=== PATIENT | male | born 1960 | race Caucasian/White ===

== ENCOUNTER 2018-08-14 11:00 | Inpatient (IN) | payer OTHER ==
--- NOTE | 2018-08-05 13:06 | HP ---
HISTORY AND PHYSICAL: DATE OF ADMISSION/SURGERY: 08/14/18 DATE OF OFFICE VISIT: 08/04/18 SURGEON: Kya Flynn MD * (DICTATED BY JOELLE ARENAS) PROCEDURE: Left total hip arthroplasty. CHIEF COMPLAINT: Left hip pain. HISTORY OF PRESENT ILLNESS: Mr. Ornelas is a 57-year-old gentleman with continued complaints of left hip pain. He has failed conservative treatment and elected to proceed with a left total hip arthroplasty. PAST MEDICAL HISTORY: Sleep apnea and hypertension. PAST SURGICAL HISTORY: Denies. CURRENT MEDICATIONS: 1. Meloxicam 7.5 mg twice a day. 2. Amlodipine 5 mg daily. ALLERGIES: No known drug allergies. FAMILY HISTORY: Coronary artery disease, Alzheimer's, and stroke. SOCIAL HISTORY: This is a 57-year-old gentleman who lives with his spouse. He does not smoke or use drugs. Uses occasional alcohol. REVIEW OF SYSTEMS: A complete 14-point review of systems was reviewed with the patient. It was all negative or noncontributory. He denies history of DVT, PE , hepatitis, HIV, or anesthesia problems. PHYSICAL EXAMINATION GENERAL: He is well developed, well nourished, in no acute distress. VITAL SIGNS: He stands 66 inches tall, weighs 198 pounds. Blood pressure is 137/72 and his heart rate is 68. HEENT: Normocephalic and atraumatic. NECK: Supple. No palpable lymph nodes. PULMONARY: The lungs are clear to auscultation bilaterally. CARDIO: Regular rate and rhythm. Strong S1 and S2. ABDOMEN: Soft, nontender, and nondistended. NEUROLOGICAL: He is alert and oriented x3. MUSCULOSKELETAL: Left lower extremity, the skin is intact. There are no open wounds or abrasions. He walks with an antalgic type gait favoring the left hip. He has decreased internal and external rotation of the left hip. He has a 2+ dorsalis pedis pulse, intact sensation and his lower extremity muscle group strengths are intact at 5/5. ASSESSMENT AND PLAN: Mr. Ornelas is a 57-year-old gentleman with end-stage osteoarthritis of the left hip. He has failed conservative treatment and elected to proceed with a left total hip arthroplasty. This surgery is scheduled for 08/14/[address] Flynn discussed the risks and benefits of the surgery at today's visit and all of his questions were answered. He will follow up with Dr. Flynn 2 weeks after the surgery. JOELLE ARENAS [id number]/[facility] #: [id number]
[~2018-08-14 11:00] MED LIST: Acetaminophen IV 1GM/100ML * 1,000 MG/100 ML VIAL IVPB ONE; Buffered Lidocaine 1% SYRIN* 1 ML/SYRINGE INTRADERM ONE; Bupivacaine 0.5%* 50 ML VIAL ONE; Dexamethasone IV* 4 MG/ML 1 ML (4 MG) IV SLOW PU ONE; Famotidine IV* 10 MG/ML 2 ML (20 mg) IV ONE; Gabapentin CAP(*) 300 MG PO ONE; Lactated Ringers 1000 ML Bag* 1,000 ML IV SCH; celeCOXIB CAP* 200 MG PO ONE
[2018-08-14] MEDS ORDERED: Midazolam* 1 MG/ML 5 ML VIAL (5 MG) ONE (11:45)
[2018-08-14] MEDS ORDERED: fentaNYL* 50 MCG/ML 2 ML VIAL (100 MCG VIAL) ONE (11:45)
[2018-08-14] MEDS ORDERED: KETAMINE HCL* 50 MG/ML 10 ML VIAL ONE (11:45)
[2018-08-14] MEDS ORDERED: Ondansetron INJ* 2 MG/ML VIAL ONE (11:48)
[2018-08-14] MEDS ORDERED: Propofol* 10 MG/ML 20 ML BTL ONE ×2 (11:48→15:21)
--- OUTSIDE RECORDS SUMMARY | 2018-08-14 12:20 | XMS REPORT | Continuity of Care Document ---
:1960 External Reference #:[id number] Author Name Dori López Care Team Providers Name Role Phone Walter Rice DO Primary Care Physician Unavailable Payers Type Date Identification Numbers Payment Provider Subscriber Policy Number: [id number] [employer] Cecilio Ornelas Group Number: [id number] [address] PayID: [id number] [place] [address] Advance Directives Description No Information Available Problems Date Description Provider Status Onset: 10/01/2017 Obstructive sleep apnea syndrome Honey Wright DNP, RN, Active RUBBER PROCESS HAND-BC Onset: 06/16/2018 Localized, primary osteoarthritis Kya Flynn M.D. Active of the pelvic region and thigh Family History Date Family Member(s) Problem(s) Comments General Heart Disease General Hypertension General Stroke General Rheumatoid Arthritis Father Angina Father due to Natural Causes () - dementia Father Pancreatitis Father Glaucoma Mother Hypertension Mother due to Alzheimer's Disease () Mother Alzheimer's Disease Siblings 3 2 brother and 1 sister Social History Type Date Description Comments Sex Unknown Marital Status Lives With Lives With Children x2 Occupation It Tobacco Use Start: Unknown Never Smoked Cigarettes Smoking Status Reviewed: 08/04/18 Never Smoked Cigarettes ETOH Use Currently consumes alcohol few per day Tobacco Use Start: Unknown Patient has never smoked Recreational Drug Use Denies Drug Use Exercise Type/Frequency Exercises sporadically Allergies, Adverse Reactions, Alerts Description No Known Drug Allergies Medications Medication Date Status Form Strength Qnty SIG Indications Ordering Provider Ibuprofen Active Tablets 200mg as needed Unknown Super Active Tablets Unknown B-Complex/Kami 00 min C Meloxicam Active Tablets 7.5mg take one Unknown 00 tab twice daily as needed for pain, avoid other nsaids Amlodipine Active Tablets 5mg 1 by mouth Unknown Besylate 00 every day Immunizations Description No Information Available Vital Signs Date Vital Result Comment 08/04/2018 11:38am Height 66 inches 5'6" Weight 197.00 lb BP Systolic 137 mmHg BP Diastolic 72 mmHg Respiratory Rate 17 /min Pain Level 2 BMI (Body Mass Index) 31.8 kg/m2 06/16/2018 9:38am Height 66 inches 5'6" Weight 198.00 lb Heart Rate 68 /min BP Systolic 126 mmHg BP Diastolic 86 mmHg BMI (Body Mass Index) 32.0 kg/m2 10/01/2017 8:44am Height 66 inches 5'6" Weight 200.12 lb Heart Rate 72 /min BP Systolic Sitting 130 mmHg Rue large cuff BP Diastolic Sitting 84 mmHg Rue large cuff Respiratory Rate 14 /min O2 % BldC Oximetry 98 % BMI (Body Mass Index) 32.3 kg/m2 10/01/2017 8:41am Height 66 inches 5'6" 09/11/2017 8:22am Height 66 inches 5'6" Weight 202.00 lb Heart Rate 64 /min BP Systolic Sitting 126 mmHg BP Diastolic Sitting 80 mmHg Respiratory Rate 14 /min O2 % BldC Oximetry 98 % BMI (Body Mass Index) 32.6 kg/m2 Neck Circumference in inches 17.5 Results Description No Information Available Procedures Date Code Description Status 09/11/2017 20068 Sleep Study Unattended,HRT Rate,Oxygen Sat,Resp Completed Effort/Airflow Encounters Type Date Location Provider Dx Diagnosis Office Visit 06/16/2018 Orthopedic Kya Flynn, M25.552 Pain in left hip 9:00a [facility] Jamison M16.12 Unilateral primary osteoarthritis, left hip Office Visit 10/01/2017 Pulmonology And Honey G47.33 Obstructive sleep 8:45a Sleep [facility] LILY Wright, RN, apnea (adult) Pallavi RUBBER PROCESS HAND-BC (pediatric) Office Visit 09/11/2017 Pulmonology And Hattie Acosta, R06.83 Snoring 8:30a Sleep Services Of MD Olivo R40.0 Somnolence Plan of Treatment Future Appointment(s):08/27/2018 8:45 am - Kya Flynn M.D. at [facility].08/14/2018 11:30 am - IVAN Beaulieu at [facility].08/14/2018 11:30 am - JOELLE Robison at [facility].08/14/2018 11:30 am - Kya Flynn M.D. at [facility].08/04/2018 - Kya Flynn M.D.M25.552 Pain in left hipFollow up:Follow up: 2 weeks after [id number] Unilateral primary osteoarthritis, left hip
--- OUTSIDE RECORDS SUMMARY | 2018-08-14 12:20 | XMS REPORT | Continuity of Care Document ---
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-BC Onset: 06/16/2018 Localized, primary osteoarthritis Kya Flynn [...] Ibuprofen Active Tablets 200mg as needed Unknown 00 Super Active Tablets Unknown B-Complex/Kami 00 min [...] kg/m2 Neck Circumference in inches 17.5 Results Test Date Facility Test Result H/L Range Note CBC Auto Diff 08/04/2018 [facility] White Blood 6.9 10^3/uL N 3.5-10.[address] [place] [address] [phone] Red Blood Count 5.55 10^6/uL High 4.00-5.40 Hemoglobin 14.8 g/dL N 14.0-18.0 Hematocrit 46 % N 42-52 Mean Corpuscular Volume 83 fL N 80-94 Mean Corpuscular Hemoglobin 27 pg N 27-31 Mean Corpuscular HGB Conc 32 g/dL N 31-36 Red Cell Distribution Width 15 % N 10.5-15 Platelet Count 333 10^3/uL N 150-450 Mean Platelet Volume 8.0 fL N 7.4-10.4 Abs Neutrophils 3.9 10^3/uL N 1.5-7.7 Abs Lymphocytes 2.1 10^3/uL N 1.0-4.8 Abs Monocytes 0.6 10^3/uL N 0-0.8 Abs Eosinophils 0.2 10^3/uL N 0-0.6 Abs Basophils 0.1 10^3/uL N 0-0.2 Abs Nucleated RBC 0 10^3/uL Granulocyte % 56.8 % Lymphocyte % 30.4 % Monocyte % 8.5 % Eosinophil % 3.1 % Basophil % 1.2 % Nucleated Red Blood Cells % 0.1 Urinalysis Profile 08/04/2018 [facility] Urine Color Yellow [address] [place] [address] [phone] Urine Appearance Clear Urine Specific [place] 1.020 N 1.010-1.030 Urine pH 5.0 N 5-9 Urine Urobilinogen Negative Negative Urine Ketones Negative Negative Urine Protein Negative Negative Urine Leukocytes Negative Negative Urine Blood Negative Negative Urine Nitrite Negative Negative Urine Bilirubin Negative Negative Urine Glucose Negative Negative Comp Metabolic Panel 08/04/2018 [facility] Sodium 136 mmol/L N 135-145 [address] [place] [address] [phone] Potassium 4.4 mmol/L N 3.5-5.0 Chloride 103 mmol/L N 101-111 Co2 Carbon Dioxide 27 mmol/L N 22-32 Anion Gap 6 mmol/L N 2-11 Glucose 93 mg/dL N 70-100 Blood Urea Nitrogen 20 mg/dL N 6-24 Creatinine 0.85 mg/dL N 0.67-1.17 BUN/Creatinine Ratio 23.5 High 8-20 Calcium 9.5 mg/dL N 8.6-10.3 Total Protein 7.4 g/dL N 6.4-8.9 Albumin 4.5 g/dL N 3.2-5.2 Globulin 2.9 g/dL N 2-4 Albumin/Globulin Ratio 1.6 N 1-3 Total Bilirubin 0.40 mg/dL N 0.2-1.0 Alkaline Phosphatase 61 U/L N 34-104 Alt 27 U/L N 7-52 Ast 22 U/L N 13-39 Egfr Non- 93.6 >60 Egfr 113.2 >60 1 Inr/Protime 08/04/2018 [facility] Inr 0.86 N 0.77-1.[address] [place] [address] [phone] Laboratory test 08/04/2018 [facility] Partial 30.5 seconds N 26.0-36.[address] [place] [address] PTT [phone] Type & Screen 08/04/2018 [facility] Patient O Positive [address] [place] [address] [phone] Antibody Screen NEGATIVE Urine Culture And 08/04/2018 [facility] Urine Culture SEE RESULT [address] [place], [place] [id number] [phone] 1 Because ethnic data is not always readily available, this report includes an eGFR for both -Americans and non- Americans. The National Kidney Disease Education Program (NKDEP) does not endorse the use of the MDRD equation for patients that are not between the ages of 18 and 70, are , have extremes of body size, muscle mass, or nutritional status, or are non- or non-. According to the National Kidney Foundation, irrespective of diagnosis, the stage of the disease is based on the level of kidney function: Stage Description GFR(mL/min/1.73 m(2)) 1 Kidney damage with normal or decreased GFR 90 2 Kidney damage with mild decrease in GFR 60-89 3 Moderate decrease in GFR 30-59 4 Severe decrease in GFR 15-29 5 Kidney failure <15 (or dialysis) 2 SEE RESULT BELOW Name: CECILIO ORNELAS : [address]: Kya Flynn MD Acct: [id number] Unit: [id number] AGE: 57 Location: [facility] Re08/04/18 SEX: M Status: REG REF SPEC: [id number] JULIO: 08/04/18 [facility] DR: Kya Flynn MD REQ: [id number] RECD: 08/04/18 STATUS: COMP JOAN DR: Walter Rice DO _ SOURCE: URINE SPDESC: ORDERED: Urine Culture QUERIES: Urine Source: Clean Catch Procedure Result Reported Site Urine Culture Final 08/05/18- 1201 ML No Growth (<1,000 CFU/mL) * ML - Main Lab . END OF REPORT DEPARTMENT OF PATHOLOGY, [address] [address] Tevin Reyes M.D. Director [facility] # [id number] Procedures Date Code Description Status 09/11/2017 87885 Sleep Study Unattended,HRT Rate,Oxygen Sat,Resp Completed Effort/Airflow Encounters Type Date Location Provider Dx Diagnosis Office Visit 06/16/2018 Orthopedic Kya Flynn, M25.552 Pain in left hip 9:00a Services Of Angela Jamison M16.12 Unilateral primary osteoarthritis, left hip Office Visit 10/01/2017 Pulmonology And Honey G47.33 Obstructive sleep 8:45a Sleep [facility] LILY Wright, RN, apnea (adult) Pallavi ROLLER STITCHER-BC (pediatric) Office Visit 09/11/2017 Pulmonology And Hattie Acosta, R06.83 Snoring 8:30a Sleep [facility] MD Olivo R40.0 Somnolence Plan of Treatment Future Appointment(s):08/27/2018 8:45 am - Kya Flynn M.D. at [facility]08/14/2018 3:30 pm - IVAN Beaulieu at [facility]08/14/2018 3:30 pm - JOELLE Robison at [facility]08/14/2018 3:30 pm - Kya Flynn M.D. at [facility]08/04/2018 - Kya Flynn M.D.M25.552 Pain in left hipFollow up:Follow up: 2 weeks after gcauhahI80.12 Unilateral primary osteoarthritis, left hip
[2018-08-14] MEDS ORDERED: Bupivacaine 0.5% SDV PF* 30ML VIAL ONE (12:23)
[2018-08-14] MEDS ORDERED: Buffered Lidocaine 1% SYRIN* 1 ML/SYRINGE INTRADERM ONE (12:37)
[2018-08-14] MEDS ORDERED: Acetaminophen IV 1GM/100ML * 100 ML ONE (13:33)
[2018-08-14] MEDS ORDERED: Glycopyrrolate IV* 0.2 MG/ML 1 ML VIAL ONE (14:16)
[2018-08-14] MEDS ORDERED: DiMENhydriNATE IV* 50 MG/ML VIAL IV PUSH PRN (14:27)
[2018-08-14] MEDS ORDERED: Naloxone* 0.4 MG/ML 1 ML VIAL IV PRN (14:27)
[2018-08-14] MEDS ORDERED: Ondansetron INJ* 2 MG/ML VIAL IV PRN ×2 (14:27→15:05)
[2018-08-14] MEDS ORDERED: HYDROmorphone INJ1* 1 MG/ML SYRINGE IV PRN (14:27)
[2018-08-14] MEDS ORDERED: fentaNYL* 50 MCG/ML 2 ML VIAL (100 MCG VIAL) IV PRN (14:27)
[2018-08-14] MEDS ORDERED: Atropine 1MG/ML INJ* 1 ML VIAL ONE (14:44)
[2018-08-14] MEDS ORDERED: Midazolam* 1 MG/ML 2 ML VIAL (2 MG) ONE (14:59)
[2018-08-14] MEDS ORDERED: diPHENhydraMINE IV* 50 MG/ML 1 ml VIAL (BENADRYL) IV PRN (15:05)
[2018-08-14] MEDS ORDERED: Bisacodyl SUPP* 10 MG SUPP PR PRN (15:05)
[2018-08-14] MEDS ORDERED: oxyCODONE/Acetamin 5/325 MG* TAB PO PRN (15:05)
[2018-08-14] MEDS ORDERED: Cyclobenzaprine TAB* 10 MG PO PRN (15:05)
[2018-08-14] MEDS ORDERED: Magnesium Hydroxide LIQ* 30 ML UDC PO PRN (15:05)
[2018-08-14] MEDS ORDERED: Polyethylene Glycol 3350* 17 GM PACKET PO PRN (15:05)
[2018-08-14] MEDS ORDERED: Morphine VIAL* 4 MG/ML VIAL (1 ml vial) IV PRN (15:05)
[2018-08-14] MEDS ORDERED: Ondansetron TAB* 4 MG PO PRN (15:05)
[2018-08-14] MEDS ORDERED: oxyCODONE TAB* 5 MG TAB PO PRN (15:05)
[2018-08-14] MEDS ORDERED: ceFAZolin 1 GM ADVAN(*) 1 GM in NS 0.9% 50 ML* 50 ML IVPB SCH (16:00)
[2018-08-14] MEDS: traMADol TAB* 50 MG PO PRN (17:24)
[2018-08-14] MEDS: Lactated Ringers 1000 ML Bag* 1,000 ML IV SCH ×2 (18:18→20:02)
[2018-08-14] MEDS: Acetaminophen TAB* 325 MG PO SCH (18:56)
[2018-08-14] MEDS ORDERED: Magnesium Hydroxide LIQ* 30 ML UDC ONE (19:56)
[2018-08-14] MEDS: Docusate CAP* 100 MG PO SCH (20:47)
[2018-08-14] MEDS: oxyCODONE/Acetamin 5/325 MG* TAB PO PRN (20:47)
[2018-08-14] MEDS: Magnesium Hydroxide LIQ* 30 ML UDC PO SCH (20:48)
--- NOTE | 2018-08-14 21:08 | CONS ---
CC: Dr. Rice; Dr. Barbie Vidal; Dr. Kya Flynn * CONSULTATION REPORT: DATE OF CONSULT: 08/14/18 PRIMARY CARE PROVIDER: Dr. Rice. MY ATTENDING WHILE IN THE HOSPITAL: Dr. Barbie Vidal. CONSULTING PROVIDER: Dr. Kya Flynn. REASON FOR CONSULT: Co-management of comorbid medical conditions. HISTORY OF PRESENT ILLNESS: Mr. Ornelas is a 57-year-old male with past medical history significant for sleep apnea, hypertension, B12 deficiency, and osteoarthritis, who underwent today elective left hip arthroplasty without complication. The patient had general and spinal anesthesia. The patient examined postoperatively and is having minimal pain. The patient denies fevers , chills, chest pain, shortness of breath, palpitations, or dizziness. The patient has regained almost full sensation in his bilateral lower extremities. The patient preoperatively has no shortness of breath, chest pain, dyspnea on exertion, abdominal pain, diarrhea, or pain when he urinated. The patient has not passed out or had increased dyspnea on exertion recently. The patient has no exposure to anybody with the flu or other communicable illness. The patient took his amlodipine this morning. The patient has not had meloxicam since last Saturday. PAST MEDICAL HISTORY: Sleep apnea, hypertension, and B12 deficiency. PAST SURGICAL HISTORY: None. CURRENT MEDICATIONS: 1. Meloxicam 7.5 mg p.o. twice a day. 2. Amlodipine 5 mg p.o. daily. ALLERGIES: Seasonal. No known drug allergies. FAMILY HISTORY: The patient's mother of Alzheimer's. The patient's father of old age. The patient has a brother with obstructive sleep apnea. SOCIAL HISTORY: The patient lives with his spouse. The patient has never smoked. Uses occasional alcohol. Never used drugs. 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 The patient has 2 children. The patient's surrogate decision maker will be his , Noemi Mireles. REVIEW OF SYSTEMS: A 14-point review of systems was reviewed and is negative except as above in the HPI. PHYSICAL EXAM: General: The patient is a 57-year-old male, who appears stated age and sitting comfortably in bed, in no acute distress. Vital Signs: Temperature 97.7, pulse rate 55, respiratory rate 18, oxygen saturation 99% on room air, blood pressure 130/86. HEENT: Head: Normocephalic, atraumatic. Sclerae anicteric. No conjunctival injection. Nasal mucosa moist. Oral mucosa moist. No oropharyngeal erythema, discharge, or exudate. Neck: Supple, nontender. No lymphadenopathy. No carotid bruits auscultated. No JVD. Cardiac: Regular rate and rhythm. No clicks, murmurs, gallops, or rubs. Pulses are 2+ in the bilateral dorsalis pedis, posterior tibial, and radial areas. Respiratory: Clear to auscultation bilaterally. No wheezes, rales, or rhonchi. Good air exchange bilaterally. Abdomen: Soft, nontender, nondistended. Bowel sounds present and normoactive in all 4 quadrants. No hepatosplenomegaly. No abdominal bruits auscultated. No hepatojugular reflux. Genitourinary: No suprapubic or CVA tenderness. Jacobs catheter in place, draining clear yellow urine. Neuro: Cranial nerves II through XII intact. No focal deficits. Alert and oriented x3. Psychiatric: Pleasant and cooperative. Skin: Clean, dry, and intact. No rash. Left hip covered in bulky dressing and not visualized. LABORATORY DATA: Preoperatively, white blood cell count 6.9, hemoglobin 14.8, platelet count 333. INR 0.86, aPTT 30.5. Sodium 136, potassium 4.4, chloride 103, carbon dioxide 27, anion gap 6, BUN 20, creatinine 0.85, glucose 93, calcium 9.5. AST 22, ALT 27. Protein 7.4, albumin 4.5, globulin 2.9. ASSESSMENT AND PLAN: The patient is a 57-year-old male with past medical history significant for hypertension, obstructive sleep apnea, and B12 deficiency, who underwent today elective left total knee arthroplasty and is doing well postoperatively. 1. Postoperative state. The patient is doing well. The patient had no intraoperative complications. The patient is recovering well from anesthesia. The patient will start PT/OT and bowel regimen for pain control. The patient will have his Jacobs removed as soon as possible per protocol. The patient should be monitored for anemia. 2. Sleep apnea. We will continue the patient's home CPAP. We will monitor overnight oximetry due to the patient's sedation. 3. Hypertension. The patient took his amlodipine today. We will hold the patient's amlodipine tomorrow unless indicated to be restarted. The patient is currently normotensive and plan to resume on 08/16/18. 4. DVT prophylaxis. Apixaban per primary team. 5. FEN. The patient will have regular unrestricted diet and fluids until able to tolerate p.o. intake. 6. Disposition. Per Orthopedics. TIME SPENT: Approximately 40 minutes was spent on this consultation, 20 of which was spent [id number] with the patient discussing the treatment plan. This plan was discussed with my attending, Dr. Barbie Vidal, and she is in agreement. JOELLE SHERIDAN [id number]/[facility] #: [id number] DENICE
[2018-08-14] MEDS: ceFAZolin 1 GM ADVAN(*) 1 GM in NS 0.9% 50 ML* 50 ML IVPB SCH (21:33)
[2018-08-15] MEDS: Acetaminophen TAB* 325 MG PO SCH ×3 (00:10→15:15)
[2018-08-15] MEDS: traMADol TAB* 50 MG PO PRN (03:11)
[2018-08-15] MEDS: Lactated Ringers 1000 ML Bag* 1,000 ML IV SCH (04:49)
[2018-08-15] MEDS: ceFAZolin 1 GM ADVAN(*) 1 GM in NS 0.9% 50 ML* 50 ML IVPB SCH ×2 (05:37→13:20)
[2018-08-15 06:12] LABS: Hematocrit 37 % (42-52); Hemoglobin 12.4 g/dl (14.0-18.0); Mean Platelet Volume 7.7 fL (7.4-10.4); Platelet Count 266 10^3/ul (150-450)
[2018-08-15 06:38] LABS: BUN/Creatinine Ratio 17.7 (8-20); Calcium 8.7 mg/dL (8.6-10.3); EGFR Non-African American 81.3 (>60); Potassium 4.4 mmol/L (3.5-5.0)
[2018-08-15] MEDS: Docusate CAP* 100 MG PO SCH (08:02)
[2018-08-15] MEDS: oxyCODONE/Acetamin 5/325 MG* TAB PO PRN ×2 (08:02→13:20)
[2018-08-15] MEDS: Magnesium Hydroxide LIQ* 30 ML UDC PO SCH (08:04)
[2018-08-15] MEDS ORDERED: amLODIPine TAB* 5 MG PO SCH (09:00)
[2018-08-15] MEDS ORDERED: Apixaban* 2.5 MG TAB PO SCH (09:00)
--- NOTE | 2018-08-15 10:22 | OP ---
OPERATIVE NOTE: DATE OF OPERATION: 08/14/18 DATE OF : 64 ATTENDING SURGEON: Kya Flynn MD. RUBBING BED OPERATOR: JOELLE Pavon. Ms. Matson did help throughout the procedure with preparation of the leg, wound retraction, manipulat ion of the hip, and wound closure. ANESTHESIOLOGIST: Dr. Manzo. ANESTHESIA: Spinal. PRE-OP DIAGNOSIS: Severe endstage degenerative osteoarthritis of the left hip joint. POST-OP DIAGNOSIS: Severe endstage degenerative osteoarthritis of the left hip joint. OPERATIVE PROCEDURE: Left total hip arthroplasty. COMPLICATIONS: None. ESTIMATED BLOOD LOSS: 200 cc. SPECIMEN: Femoral head and acetabular reaming sent to pathology. HARDWARE USED: This is uncemented [place] total hip arthroplasty hardware. For the cup, a Tritanium cluster hole shell 50D. For the liner, a Trident X3 0-degree polyethylene insert 32D. For the stem , an Accolade II, size 3 with a 127-degree neck. For the head, a Biolox delta ceramic V40 32 +0 femo ral head. BRIEF HISTORY/INDICATION: Mr. Ornelas is a 57-year-old gentleman with years of increasingly severe le ft hip pain. Radiograph showed endstage arthritis with bone- on-bone contact. He failed conservativ e treatment with antiinflammatories, pain medication, and physical therapy. Due to continued pain an d decreased quality of life, he elected to undergo a left total hip arthroplasty. Informed consent w as obtained from the patient. He understood the risks of the surgery included but were not limited t o bleeding, infection, damage to nearby structures, continued pain, need for further surgery, intraop erative fracture, nerve palsy, hardware failure or loosening, dislocation, leg length discrepancies, stroke, heart attack, blood clot, and . He wished to proceed. INTRAOPERATIVE FINDINGS: Intraoperatively, the patient was noted to have severe endstage arthritis w ith complete loss of cartilage in the femoral head and acetabulum. He had extensive osteophyte forma tion at the acetabulum. DESCRIPTION OF PROCEDURE: Mr. Ornelas was identified in the preanesthesia unit. His left lower extrem ity was marked as the correct operative site. Informed consent was signed and placed in the chart. The patient was taken to the operating room and placed under spinal anesthesia. A Jacobs catheter was placed. The patient was placed in the right lateral decubitus position on the peg board. All bony prominences were well padded. Left lower extremity was prepped and draped in the usual sterile fashi on. Preop time-out was made to correctly identify the patient, side, and site. Appropriate perioper ative antibiotics were given within 1 hour of incision. A standard posterior hip incision was made with a 10-blade and carried down through the lateral fasci a layer. Lateral fascia layer was incised in line with the skin incision. A Charnley retractor was placed. The piriformis and conjoint tendons were elevated off the posterolateral femur and tagged wi th #5 Ethibond. Electrocautery was used to make a standard posterolateral capsular flap and this was also tagged with #5 Ethibond. The hip was carefully dislocated. Lesser troch to center of the femor al head measured 53 mm. Oscillating saw was used to make the appropriate femoral neck cut. The femo ral head was removed. The femur was carefully retracted anteriorly. After appropriate placement of retractors, the acetabu lum was well visualized. Long-handle knife was used to sharply remove any remaining labrum from the acetabular rim. There was a loose anterior osteophyte, which was quite significant. This was carefu lly removed with a Jaye and electrocautery. The acetabulum was sequentially reamed up to a size 49 . A 49 reamer obtained a bleeding subchondral bone bed. The 49 trial had excellent fit and stabilit y. Final implant chosen was a Tritanium cluster hole shell 50D. This was impacted into the acetabul um. It was extremely stable with appropriate anteversion and abduction angle. A Trident X3 0-degree polyethylene liner 32D was chosen as the correct liner. This was impacted into the acetabulum. Stab ility of the liner was checked and rechecked and noted to be stable. Attention was turned next to preparation of the proximal femur. A canal finder was used to enter the proximal femur. The proximal femur was sequentially broached up to a size 3. Size 3 broach had exc ellent fit and stability with appropriate anteversion. A 127 neck trial with a 32 +0 head trial was placed. Lesser troch to center of the femoral head measured 54 mm. The hip was reduced and taken th rough range of motion. The hip was stable in all positions. There was good soft tissue tension and appropriate leg lengths. The hip was carefully dislocated. All trials were removed. Final implant chosen was an Accolade II, size 3 with a 127-degree neck angle. This was impacted into the femoral c anal without difficulty. The stem had good fit and appropriate anteversion. A Biolox delta ceramic V40 femoral head 32 +0 was chosen as the femoral head. The head was impacted onto the neck without d ifficulty. Lesser troch to center of the femoral head final measurement was 54 mm. The hip was redu liberty and taken through range of motion. The hip was stable in all positions. There was good soft tis rena tension and appropriate leg lengths. The hip was copiously irrigated with sterile saline. Previously tagged tendons and capsule were reap proximated to the posterolateral femur through 2 trochanteric drill holes. Lateral fascia layer was closed using interrupted #1 Vicryls. The rest of the incision was closed in a layered fashion using 0 and 2-0 Vicryls. Skin was closed using running 3-0 Monocryl and Dermabond. Sterile Adaptic, 4x4s, and paper tape were used to cover the incision. The patient's anesthesia was reversed without diffi culty. He was taken to the PACU in stable condition. Intended weightbearing will be weightbearing a s tolerated. Intended DVT prophylaxis will be Eliquis. [id number]/[facility] #: [id number]
--- NOTE | 2018-08-15 10:28 | PN ---
Progress Note - Progress Note Date of Service: 08/15/18 SOAP: Subjective: []Patient seen OOB in chair, did well with therapy. Denies SOB, CP, palpitations or dizziness. Feels he will be able to go home after therapy this afternoon. Nursing reports still to urinate today. Pt denies feeling symptoms of retention this am. Objective: [] Vital Signs Temp 97.9 F 08/15/18 07:29 Pulse 81 08/15/18 07:29 Resp 18 08/15/18 10:18 BP 113/55 08/15/18 07:29 Pulse Ox 99 08/15/18 07:29 Intake & Output 08/14/18 08/15/18 08/15/18 18:59 06:59 18:59 Intake Total 2200 2250 Output Total 750 1900 Balance 1450 350 Weight 198 lb Intake: IV Fluids 2000 950 LR 950 lr 2000 Oral 200 1300 Output: Jacobs 750 1900 Laboratory Results - last 24 hr 08/15/18 08/15/18 06:00 06:00 Hgb 12.4 L Hct 37 L Plt Count 266 MPV 7.7 Sodium 134 L Potassium 4.4 Chloride 102 Carbon Dioxide 24 Anion Gap 8 BUN 17 Creatinine 0.96 Est GFR ( Amer) 98.4 Est GFR (Non-Af Amer) 81.3 BUN/Creatinine Ratio 17.7 Glucose 155 H Calcium 8.7 Left hip dressings are dry and intact calf NT and soft + DF/PF left ankle sensation and circulation intact distally Assessment: []s/p left total hip arthroplasty POD #1 Plan: [] PT/OT WBAT LLE Eliquis 2.5 po BID for DVT prophlaxis Home this afternoon after PT and if urinary retention resolved.
[2018-08-15 14:58] VITALS: BP 124/70
--- NOTE | 2018-08-15 21:17 | DS ---
DISCHARGE SUMMARY: DATE OF ADMISSION: 08/14/18 DATE OF DISCHARGE: 08/15/18 ATTENDING PHYSICIAN: Dr. Kya lFynn.* (DICTATED BY JOELLE MALDONADO) ADMISSION DIAGNOSIS: Severe end-stage degenerative osteoarthritis, left hip joint. DISCHARGE DIAGNOSIS: Severe end-stage degenerative osteoarthritis, left hip joint. SURGERY PERFORMED: Left total hip arthroplasty. HOSPITAL COURSE: The patient is a 57-year-old male with years of increasingly severe left hip pain. His plain films revealed end-stage osteoarthritis with bone- on-bone contact. Due to the fact that he failed conservative management with antiinflammatories, pain medication, physical therapy and due to increased pain and decreased quality of life, he elected to proceed with surgical intervention. He was taken to the operating room under the care of Dr. Kya Flynn on the date of 08/14/18 for the aforementioned procedure. He tolerated the procedure well and left the operating room in stable condition. Postoperatively, he did very well with physical therapy and occupational therapy , bearing weight as tolerated on the left lower extremity. His pain was under excellent control with oral pain medications. He had no post-operative complications otherwise, medically. He felt he was feeling well enough to go home this afternoon after a second physical therapy session. PLAN: Discharge to home, bearing weight as tolerated in the left lower extremity. CONDITION ON DISCHARGE: Revealed temperature of 97.9, pulse 81, respiratory rate 16, O2 sats 99% on room air, blood pressure 113/55. The left hip incision is healing without evidence of infection. There is mild thigh swelling which is soft to palpation. His calf is soft and nontender. He has active dorsiflexion of his left ankle. His circulation and sensation are intact distally. Discharge to home, bearing weight as tolerated as above. He is prescribed oxycodone 10 mg 1 tablet p.o. q.4 hours p.r.n. pain #42 with MDD of 6. He is prescribed Eliquis 2.5 mg p.o. b.i.d. for the next 30 days for postoperative DVT prophylaxis. His medications were brought to the bedside prior to discharge today. We recommend followup as scheduled in roughly 10 to 14 days in the office with Dr. Flynn. JOELLE MALDONADO [id number]/[facility] #: [id number] DENICE
[2018-08-16] MEDS ORDERED: amLODIPine TAB* 5 MG PO SCH (09:00)
== END 2018-08-15 16:30 | disposition home or self-care (01) | DRG 470 ==
LOC: AA 12:17 → SSU 18:35
PROVIDERS: ADMIT Orthopaedic Surgery Adult Reconstructive Orthopaedic Surgery; ATTEND Orthopaedic Surgery Adult Reconstructive Orthopaedic Surgery
PROC: 0SRB04A Replacement of Left Hip Joint with Ceramic on Polyethylene Synthetic Substitute, Uncemented, Open Approach (ICD-10-PCS; principal; 2018-08-14 15:30)
DX: M16.0 Bilateral primary osteoarthritis of hip (principal); M19.021 Primary osteoarthritis, right elbow; I10 Essential (primary) hypertension; J45.909 Unspecified asthma, uncomplicated; M19.022 Primary osteoarthritis, left elbow; E53.8 Deficiency of other specified B group vitamins; E66.9 Obesity, unspecified; G47.33 Obstructive sleep apnea (adult) (pediatric); M25.752 Osteophyte, left hip; Z82.49 Family history of ischemic heart disease and other diseases of the circulatory system; Z82.3 Family history of stroke; Z68.31 Body mass index [BMI] 31.0-31.9, adult; Z82.5 Family history of asthma and other chronic lower respiratory diseases; Z81.8 Family history of other mental and behavioral disorders; Z72.89 Other problems related to lifestyle
CPT/HCPCS: 36415; 80048; 85014; 85018; 85049; A9270-GY; G8987-GO-CJ; G8988-GO-CI; G8989-GO-CI; J0461; J0690; J2250; J2405; J2704; J3010

== ENCOUNTER 2022-08-07 08:46 | Observation (INO) ==
[~2022-08-07 08:46] MED LIST changes: -Acetaminophen IV 1GM/100ML * 1,000 MG/100 ML VIAL IVPB ONE; +Buffered Lidocaine 1% SYRIN 1 ml INTRADERM ONE; -Buffered Lidocaine 1% SYRIN* 1 ML/SYRINGE INTRADERM ONE; -Bupivacaine 0.5%* 50 ML VIAL ONE; -Dexamethasone IV* 4 MG/ML 1 ML (4 MG) IV SLOW PU ONE; -Famotidine IV* 10 MG/ML 2 ML (20 mg) IV ONE; -Gabapentin CAP(*) 300 MG PO ONE; -Lactated Ringers 1000 ML Bag* 1,000 ML IV SCH; +Lactated Ringers 1000 ml BAG 1,000 ML IV SCH; +Metoclopramide 5 MG/ML VIAL (10 mg) IV PRN; +Naloxone 0.4 mg VIAL 0.4 mg/ml 1 ml VIAL IV PRN; +Ondansetron 4 mg VIAL 2 MG/ML 2 ml VIAL IV PRN; -celeCOXIB CAP* 200 MG PO ONE
[2022-08-07] MEDS ORDERED: ceFAZolin 2 GM PREMIX 2 GM/50 ML BAG ONE (09:08)
[2022-08-07] MEDS ORDERED: Phenylephrine IV 10 MG/ML 1 ml VIAL ONE (11:07)
[2022-08-07] MEDS ORDERED: Lidocaine 2% PF 5 ML VIAL ONE (11:07)
[2022-08-07] MEDS ORDERED: Midazolam 2 mg/2 ml VIAL 1 mg/ml 2 ml VIAL (2 mg) ONE (11:10)
[2022-08-07] MEDS ORDERED: Ondansetron 4 mg VIAL 2 MG/ML 2 ml VIAL ONE (12:01)
[2022-08-07] MEDS ORDERED: Dexamethasone IV 4 MG/ML VIAL 1 ml VIAL ONE (12:01)
[2022-08-07] MEDS ORDERED: Propofol 10 MG/ML 20 ML BTL ONE ×2 (12:04→13:57)
[2022-08-07] MEDS ORDERED: Magnesium Hydroxide LIQ 30 ML UDC PO PRN (12:34)
[2022-08-07] MEDS ORDERED: Ondansetron 4 mg VIAL 2 MG/ML 2 ml VIAL IV PRN (12:34)
[2022-08-07] MEDS ORDERED: Ondansetron ODT 4 mg TAB 4 MG TAB PO PRN (12:34)
[2022-08-07] MEDS ORDERED: Morphine 2 MG/ML SYRINGE IV PRN (12:34)
[2022-08-07] MEDS ORDERED: Lactulose 30 ml UDC PO PRN (12:34)
[2022-08-07] MEDS ORDERED: fentaNYL 100 mcg/2 ml 50 MCG/ML VIAL ONE ×2 (13:53→14:40)
[2022-08-07] MEDS ORDERED: HYDROcodone/ACETAMIN 5/325 mg TAB ONE ×2 (14:40→15:11)
[2022-08-07] MEDS: HYDROcodone/ACETAMIN 5/325 mg TAB PO PRN ×2 (14:41→15:11)
[2022-08-07] MEDS: fentaNYL 100 mcg/2 ml 50 MCG/ML VIAL IV PRN ×2 (14:42→14:55)
[2022-08-07] MEDS: Lactated Ringers 1000 ml BAG 1,000 ML IV SCH (16:16)
[2022-08-07] MEDS: ceFAZolin 1 GM ADVAN 1 GM in NS 0.9% 50 ML 50 ML IVPB SCH (19:59)
[2022-08-07] MEDS: Magnesium Hydroxide LIQ 30 ML UDC PO SCH (21:09)
[2022-08-08] MEDS: Lactated Ringers 1000 ml BAG 1,000 ML IV SCH (02:14)
[2022-08-08] MEDS: ceFAZolin 1 GM ADVAN 1 GM in NS 0.9% 50 ML 50 ML IVPB SCH (03:30)
[2022-08-08 06:34] LABS: Hematocrit 34 % (42-52); Hemoglobin 11.7 g/dL (14.0-18.0); Mean Platelet Volume 7.4 fL (7.4-10.4); Platelet Count 197 10^3/uL (150-450)
[2022-08-08 07:23] LABS: Calcium 8.1 mg/dL (8.6-10.3); Potassium 4.5 mmol/L (3.5-5.0); eGFR CKD-EPI 75.7 (>60)
[2022-08-08] MEDS: Magnesium Hydroxide LIQ 30 ML UDC PO SCH (08:13)
[2022-08-08] MEDS ORDERED: Pneumococcal Vac 23-Polyvalent IM ONE (09:00)
[2022-08-08] MEDS ORDERED: Vitamin THERAPEUTIC TAB PO SCH (09:00)
[2022-08-08 11:38] VITALS: BP 130/85
== END 2022-08-08 13:17 | disposition home or self-care (01) ==
LOC: SSU 08:46 → OR 08:46
PROVIDERS: ADMIT Orthopaedic Surgery Adult Reconstructive Orthopaedic Surgery; ATTEND Orthopaedic Surgery Adult Reconstructive Orthopaedic Surgery